=== PATIENT | female | born 1955 | race Caucasian/White ===

== ENCOUNTER → 2019-06-21 10:32 | Outpatient (CLI) | payer OTHER, SELFPAY ==
--- NOTE | 2019-06-21 | DI.RAD.S_ITS ---
PROCEDURE: XR KNEE LT 1TO2V INDICATIONS: LT KNEE/ HIP PAIN TECHNIQUE: 2 views of the knee were acquired. COMPARISON: None. FINDINGS: Bones: No fractures or dislocations. No suspicious bony lesions. Medial left knee unicompartmental hemiarthroplasty Soft tissues: No joint effusion. No suspicious soft tissue calcifications. IMPRESSION: Normal alignment established after medial unicompartmental and the last the period Dictated by: Oj Marroquin M.D. on 06/21/2019 at 12:50 Approved by: Oj Marroquin M.D. on 06/21/2019 at 12:50
--- NOTE | 2019-06-21 | DI.RAD.S_ITS ---
PROCEDURE: XR HIP W PEL IF DONE LT 2V INDICATIONS: LT KNEE/ HIP PAIN TECHNIQUE: 2 views of the hip were acquired. COMPARISON: None. FINDINGS: Bones: No fractures or dislocations. No suspicious bony lesions. The visualized pelvic ring appears intact. Soft tissues: No suspicious soft tissue calcifications or masses. IMPRESSION: Only a slight degree of hip joint osteoarthritis is present, no trauma found. Dictated by: Oj Marroquin M.D. on 06/21/2019 at 12:49 Approved by: Oj Marroquin M.D. on 06/21/2019 at 12:50
== END ==
PROVIDERS: PCP Family Medicine
DX: M25.552 Pain in left hip (principal); M25.562 Pain in left knee
CPT/HCPCS: 73502; 73560